=== PATIENT | female | born 1935 | race Caucasian/White ===

== ENCOUNTER → 2016-12-11 | Outpatient (CLI) | payer MEDICARE, OTHER ==
[~2016-12-11] MED LIST: BONI150T PO; COZA50TA PO; FISH1000 PO; GLUC500C56 PO; LATA.005%O OU; LUTE6CAP7 PO; TAB-TAB PO
--- NOTE | 2016-12-16 12:38 | RSPPFT ---
DATE OF PROCEDURE: 12/11/16 COMMENTS: VOLUMES DYNAMIC: FVC normal; FEV1 mildly reduced. STATIC: TLC normal; FRC and RV moderately increased. FLOWS: FEV1% moderately reduced; FEF 25-75 severely reduced. DIFFUSION: Normal. FLOW VOLUME LOOP: Pattern of variable intrathoracic airways obstruction. IMPRESSION: Mild to moderate obstructive ventilatory defect with no reduction in diffusion but with moderate hyperinflation. Airways resistance is increased. Minimal change post-bronchodilator.
== END ==
LOC: HRSP 11:58
PROVIDERS: ATTEND Internal Medicine
DX: J45.909 Unspecified asthma, uncomplicated (principal)
CPT/HCPCS: 94620

== ENCOUNTER 2017-09-03 12:39 | Emergency (ER) | payer MEDICARE, OTHER ==
[~2017-09-03] VITALS: Ht 154.9 cm; Wt 48.0 kg
[2017-09-03 12:43] VITALS: BP 146/67; PULSE 70; RESP 18; TEMP 98.1; O2SAT 99
--- NOTE | 2017-09-03 13:22 | RADRPT ---
EXAM DATE/TIME: 09/03/2017 13:09 [facility] COMPARISON: No previous studies available for comparison. INDICATIONS : Cough. MEDICAL HISTORY : Chronic obstructive pulmonary disease. asthma, SURGICAL HISTORY : None. ENCOUNTER: Initial ACUITY: 3 weeks PAIN SCORE: 0/10 LOCATION: Bilateral chest FINDINGS: PA and lateral views of the chest demonstrates hyperinflation which can be seen with CO PD. No infiltrates are seen. Nodule projects over the right lower lobe seen only on anterior project ion. Heart is normal in size. The mediastinal contours are unremarkable. Osseous structures are int act. CONCLUSION: Hyperinflation which can be seen with COPD. No evidence for an infiltrate. Nodu le only projects on the anterior view right lower lobe. Outpatient CT chest. Weston Stoner MD on September 03, 2017 at 13:17 Board Certified Radiologist. This report was verified electronically.
[2017-09-03] MEDS ORDERED: GLUC500T4 PO (13:58)
[2017-09-03] MEDS ORDERED: LUTE6CAP2 PO (13:58)
[2017-09-03] MEDS ORDERED: LOSA50TA PO (13:58)
[2017-09-03] MEDS ORDERED: MULTTAB67 PO (13:58)
[2017-09-03] MEDS ORDERED: LATA.005%O EACH EYE (13:58)
[2017-09-03] MEDS ORDERED: CALCTAB19 PO (13:58)
[2017-09-03] MEDS ORDERED: MONT4CHW4 CHEW (13:58)
[2017-09-03] MEDS ORDERED: ANAS1TAB PO (13:58)
[2017-09-03] MEDS ORDERED: predniSONE 20 MG TAB PO ONE (14:15)
[2017-09-03] MEDS: RESP: ALBUTEROL 2.5 MG/IPRATROPIUM 0.5 MG NEB (SCH) INH ×2 (14:30→14:31)
[2017-09-03] MEDS ORDERED: E-ZMIS3 (15:17)
[2017-09-03] MEDS ORDERED: PRED20 PO (15:17)
[2017-09-03] MEDS ORDERED: LEVA500T33 PO (15:17)
--- NOTE | 2017-09-03 15:17 | PD ---
HPI Chief Complaint: Respiratory Symptoms Time Seen by Provider: 14:02 Travel History International Travel<30 days: No Contact w/Intl Traveler<30days: No Traveled to known affect area: No History of Present Illness HPI This is an 82-year-old female who has a history of COPD who presents to the emergency department with wheezing, shortness of breath, constant, moderate severity it has been going on for 2-3 weeks associated with productive cough with yellow sputum. She denies any fevers. She does have some chest tightness. She was prescribed prednisone and azithromycin from her primary care physician. She finished her prednisone course yesterday and completed the antibiotic but her symptoms have not improved. She called Dr. Luke's office who is her plastic panel installer. He said he could see here on Wednesday but recommended that she come to the emergency room for a chest x-ray. She did get the flu shot this year. PFSH Past Medical History Asthma: Yes Cancer: Yes (hx left breast) COPD: Yes Hypertension: Yes Radiation Therapy: Yes (for prev breast ca) Influenza Vaccination: Yes Tubal Ligation: Yes Past Surgical History Appendectomy: Yes Tonsillectomy: Yes Other Surgery: Yes (left lumpectomy) Social History Alcohol Use: Yes (wine occas) Tobacco Use: No Substance Use: No Allergies-Medications (Allergen,Severity, Reaction): Coded Allergies: sulfite (Unverified Allergy, Severe, Shortness of Breath, 09/03/17) codeine (Unverified Allergy, Intermediate, NAUSEA, 09/03/17) Reported Meds & Prescriptions Reported Meds & Active Scripts Active Reported Montelukast (Montelukast Sodium) 4 Mg Chew 4 Mg CHEW HS Anastrozole 1 Mg Tab 1 Mg PO DAILY Calcium 600+D 200 (Calcium Carbonate-Vitamin D) 600-200 Mg-Unit Tab 1 Tab PO BID Lutein 6 Mg Cap 6 Mg PO DAILY Xalatan Opth Drops (Latanoprost) 0.005% Drops 1 Drop EACH EYE HS Multiple Vitamin 1 Tab 1 Tab PO DAILY Glucosamine-Chondroitin 500-400 Mg Tab 1 Tab PO DAILY Losartan (Losartan Potassium) 50 Mg Tab 50 Mg PO DAILY Cozaar (Losartan Potassium) 50 Mg Tab 50 Mg PO DAILY Review of Systems Except as stated in HPI: all other systems reviewed are Neg Physical Exam Narrative GENERAL:Well appearing, no acute distress SKIN: Focused skin assessment warm and dry. HEAD: Atraumatic. Normocephalic. EYES: Pupils equal and round. No injection or drainage. ENT: Moist mucous membranes NECK: Trachea midline. CARDIOVASCULAR: Regular rate and rhythm. No murmur appreciated. RESPIRATORY: Diffuse wheezing with prolonged expiratory phase, no tachypnea or accessory muscle use GASTROINTESTINAL: Abdomen soft, non-tender, nondistended. MUSCULOSKELETAL: No obvious deformities. NEUROLOGICAL: Awake and alert. No obvious cranial nerve deficits. Moving all extremities. PSYCHIATRIC: Appropriate mood and affect; insight and judgment normal. Data Data Last Documented VS Vital Signs Date Time Temp Pulse Resp B/P (MAP) Pulse Ox O2 Delivery O2 Flow Rate FiO2 09/03/17 12:43 98.1 70 18 146/67 (93) 99 Room Air Orders Orders Influenzae A/B Antigen (09/03/17 12:54) Chest, Pa & Lat (09/03/17 ) Prednisone (Deltasone) (09/03/17 14:15) Albuterol-Ipratropium Neb (Duoneb Neb) (09/03/17 14:15) MDM Medical Decision Making Medical Screen Exam Complete: Yes Emergency Medical Condition: Yes Interpretation(s) No hypoxia Influenza is negative Hyperinflation on chest x-ray Differential Diagnosis COPD exacerbation, pneumonia, viral syndrome, influenza Narrative Course This is an 82-year-old female who presents to the emergency department with 2-3 weeks of increasing shortness of breath associated with some productive cough. She has completed azithromycin and a course of prednisone but her symptoms are not improving. She is 99% on room air but diffusely wheezing on exam. Chest x- ray demonstrates hyperinflation but no obvious consolidation. Patient was given serial bronchodilators in the emergency department and on reassessment she seems to be moving more air. I think she is safe for outpatient management. She will be started again on a higher dose prednisone and she will be prescribed Levaquin. I also recommended she use a spacer and use her bronchodilator more routinely. I asked her to follow-up with Dr. Luke her plastic panel installer sometime next week. Diagnosis Primary Impression: COPD exacerbation Patient Instructions: General Instructions Additional Instructions: If you develop severe shortness of breath, chest pain, or difficulty breathing return to the emergency department. Use albuterol every 4 hours for the next 2 days. Then use as needed for wheezing. Complete your course of steroids. Complete your course of antibiotics. Follow up with your primary care physician in 2-3 days if your symptoms have not improved. Med/Other Pt SpecificInfo: Prescription(s) given Scripts E-Z Spacer-Aerosol Holding Chamber (E-Z Spacer-Aerosol Holding Chamber) 1 Mis Mis EA .XX DIRECTED for Breathing Treatment, #1 0 Refills Prov: Yue Chauhan MD 09/03/17 Levofloxacin (Levaquin) 500 Mg Tablet 500 MG PO DAILY for Infection for 7 Days, #7 TAB 0 Refills Prov: Yue Chauhan MD 09/03/17 Prednisone (Prednisone) 20 Mg Tab 40 MG PO DIRECTED for 5 Days, TAB 0 Refills Prov: Yue Chauhan MD 09/03/17 Disposition: 01 DISCHARGE HOME Condition: Stable Yue Chauhan MD Sep 03, 2017 15:17
== END 2017-09-03 15:41 | disposition home or self-care (01) ==
LOC: NEPD 12:39
DX: J44.1 Chronic obstructive pulmonary disease with (acute) exacerbation (principal); I10 Essential (primary) hypertension; Z85.3 Personal history of malignant neoplasm of breast; Z88.5 Allergy status to narcotic agent; Z79.899 Other long term (current) drug therapy
CPT/HCPCS: 71046; 87804; 94640; 94664; 99284; J7512; 99285